=== PATIENT | male | born 1980 | race Two or more races ===

== ENCOUNTER 2020-11-06 08:18 | Outpatient (CLI) | payer OTHER | END 2020-11-06 08:34 | disposition HB | LOC: RAD 08:18 → EDBD 08:18 → RAD 08:34 | DX: C18.6 Malignant neoplasm of descending colon (principal); K59.09 Other constipation; N39.0 Urinary tract infection, site not specified; Z20.828 Contact with and (suspected) exposure to other viral communicable diseases; K62.5 Hemorrhage of anus and rectum; D59.8 Other acquired hemolytic anemias; Z11.59 Encounter for screening for other viral diseases ==

== ENCOUNTER 2020-11-09 12:00 | Inpatient (IN) | payer OTHER ==
[~2020-11-09] VITALS: Ht 167.6 cm; Wt 69.9 kg
[2020-11-16] MEDS ORDERED: DESITIN57 G1 (11:43)
== END 2020-11-20 16:04 | disposition home or self-care (01) | DRG 331 ==
LOC: O/R 11-16 07:00 → SURH 11-16 18:09
PROVIDERS: ADMIT Colon & Rectal Surgery; ATTEND Colon & Rectal Surgery
PROC: 07BC4ZZ Excision of Pelvis Lymphatic, Percutaneous Endoscopic Approach (ICD-10-PCS; 2020-11-16)
PROC: 0DBM4ZZ Excision of Descending Colon, Percutaneous Endoscopic Approach (ICD-10-PCS; principal; 2020-11-16 07:00)
DX: C18.6 Malignant neoplasm of descending colon (principal); R59.0 Localized enlarged lymph nodes; E83.39 Other disorders of phosphorus metabolism

== ENCOUNTER 2021-11-20 06:35 | Day surgery (SDC) | payer OTHER ==
[~2021-11-20 06:35] MED LIST: DESITIN57 G1
== END 2021-11-20 11:18 | disposition home or self-care (01) ==
LOC: AMB-ENDOS 06:35
PROVIDERS: ATTEND Colon & Rectal Surgery
DX: D12.3 Benign neoplasm of transverse colon (principal); K64.8 Other hemorrhoids; Z20.822 Contact with and (suspected) exposure to COVID-19

== ENCOUNTER 2022-10-25 15:42 | Inpatient (IN) | payer OTHER ==
[~2022-10-25] VITALS: Ht 167.6 cm; Wt 152.9 kg
== END 2022-11-01 10:57 | disposition home or self-care (01) | DRG 388 ==
LOC: ER 15:42 → SURH 15:52 → MEDJ 10-29 15:41 → SURH 10-29 15:56 → MEDJ 10-29 16:17
PROVIDERS: ADMIT Colon & Rectal Surgery; ATTEND Colon & Rectal Surgery
PROC: BW21YZZ Computerized Tomography (CT Scan) of Abdomen and Pelvis using Other Contrast (ICD-10-PCS; principal; 2022-10-25)
DX: K56.690 Other partial intestinal obstruction (principal); U07.1 COVID-19; E83.39 Other disorders of phosphorus metabolism

== ENCOUNTER 2023-02-11 07:04 | Day surgery (SDC) | payer OTHER | END 2023-02-11 13:45 | disposition home or self-care (01) | LOC: AMB-ENDOS 07:04 | PROVIDERS: ATTEND Colon & Rectal Surgery | DX: D12.3 Benign neoplasm of transverse colon (principal); Z85.038 Personal history of other malignant neoplasm of large intestine; R10.84 Generalized abdominal pain; Z20.822 Contact with and (suspected) exposure to COVID-19 ==

== ENCOUNTER 2024-08-18 06:38 | Emergency (ER) | payer OTHER ==
[~2024-08-18] VITALS: Ht 167.6 cm; Wt 61.2 kg
[2024-08-18 07:26] VITALS: BP 118/77; O2SAT 99
[2024-08-18] MEDS ORDERED: 0.9 % SODIUM CHLORIDE 1,000 ML IV STA (08:30)
[2024-08-18] MEDS ORDERED: ONDANSETRON HCL 2 MG/ML VIAL IV STA (08:30)
[2024-08-18 09:04] LABS: HEMATOCRIT 43.4 % (39.0-48.0); HEMOGLOBIN 15.1 g/dL (13-16.00); MEAN CELL VOLUME 90.1 fL (80.0-100.00); MEAN CORPUSCULAR HEMOGLOBIN 31.3 pg (27.00-32.0); MEAN CORPUSCULAR HGB CONC 34.7 g/dl (32.0-36.0); PLATELET COUNT 195 K/uL (150-450); RED BLOOD COUNT 4.82 M/uL (4.00-6.00); RED CELL DISTRIBUTION WIDTH 13.3 % (11.5-14.5)
[2024-08-18 09:37] LABS: CALCIUM 9.8 mg/dL (8.5-10.1); CREATININE SERUM 0.95 mg/dL (0.70-1.30); GFR 86.53; POTASSIUM 4.43 mEq/L (3.5-5.1)
[2024-08-18 10:58] LABS: PH,URINE 6.5 (5.0-8.0); URINE APPEARANCE Clear; URINE BILIRRUBIN Negative (NEGATIVE); URINE BLOOD Negative; URINE COLOR Yellow; URINE GLUCOSE Negative (NEGATIVE); URINE LEUKOCYTE Negative; URINE NITRATE Negative; URINE PROTEIN Negative (NEGATIVE)
[2024-08-18 11:00] LABS: URINE BACTERIA 8.8 uL (0.0-1933); URINE EPITHELIAL CELLS 2.7 uL (0.0-38.8); URINE RBC 19.6 uL (0.0-20.8)
[2024-08-18 11:05] LABS: URINE KETONE 40 (NEGATIVE); URINE WBC 1.2 uL (0.0-23.2)
== END 2024-08-18 13:56 | disposition home or self-care (01) ==
LOC: ER 06:40
PROVIDERS: Emergency Medicine
DX: R10.9 Unspecified abdominal pain (principal); R11.10 Vomiting, unspecified
CPT/HCPCS: 36415; 74177; Q9965

== ENCOUNTER 2024-08-29 07:28 | Day surgery (SDC) | payer OTHER ==
[2024-08-29] MEDS ORDERED: fentaNYL CITRATE 50 MCG/ML AMPUL IV PUSH ONE (13:45)
[2024-08-29] MEDS ORDERED: ONDANSETRON HCL 2 MG/ML VIAL IV ONE (13:45)
[2024-08-29] MEDS ORDERED: DIPHENHYDRAMINE HCL 50 MG/ML VIAL 1ML IV ONE (13:45)
[2024-08-29] MEDS ORDERED: MIDAZOLAM HCL 2 MG/2 ML VIAL IV ONE (13:45)
== END 2024-08-29 15:10 | disposition home or self-care (01) ==
LOC: AMB-ENDOS 07:28
PROVIDERS: ATTEND Colon & Rectal Surgery
DX: R19.4 Change in bowel habit (principal); K63.5 Polyp of colon; Z12.11 Encounter for screening for malignant neoplasm of colon